=== PATIENT | male | born 1955 | race Two or more races ===

== ENCOUNTER 2024-09-13 08:10 | Emergency (ER) | payer MEDICAID, OTHER ==
[~2024-09-13] VITALS: Ht 149.9 cm; Wt 82.0 kg
[2024-09-13 09:17] VITALS: BP 152/92; PULSE 94; RESP 18; TEMP 98.2; O2SAT 99
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
[2024-09-13] MEDS: ACETAMINOPHEN 500 MG TAB or CAP PO ONE (09:37)
--- NOTE | 2024-09-13 11:00 | DVH ---
CLINICAL INDICATION: Trauma TECHNIQUE: 3 radiographic views of the right knee were obtained. Comparison: None FINDINGS/IMPRESSION: There is no evidence of acute fracture or dislocation. Status post right knee arthroplasty. The visualized joint space is well maintained. The alignment is anatomical. There is no radiopaque foreign body.
--- NOTE | 2024-09-13 11:00 | DVH ---
INDICATION: Trauma COMPARISON: None TECHNIQUE: 3 views of the lumbar spine were obtained. FINDINGS: Straightening of the lumbosacral spine. Mild multilevel degenerative disc disease of the lumbosacral spine. No acute fracture, vertebral compression deformity or aggressive osseous lesions. The paravertebral soft tissues are grossly unremarkable. IMPRESSION: No acute fracture. Mild multilevel degenerative disc disease of the lumbosacral spine.
[2024-09-13] MEDS ORDERED: IBUP-1456 PO (11:02)
== END 2024-09-13 11:05 | disposition home or self-care (01) ==
LOC: ER 08:10 → EDBD 08:10 → ER 11:05
DX: S39.012A Strain of muscle, fascia and tendon of lower back, initial encounter (principal); S83.91XA Sprain of unspecified site of right knee, initial encounter; I10 Essential (primary) hypertension; V43.62XA Car passenger injured in collision with other type car in traffic accident, initial encounter; Y93.89 Activity, other specified; Y92.89 Other specified places as the place of occurrence of the external cause; Y99.8 Other external cause status
CPT/HCPCS: 72100; 73562